=== PATIENT | male | born 1995 | race African-American/Black ===

== ENCOUNTER 2019-09-20 11:25 | Emergency (ER) | payer OTHER ==
[2019-09-20 11:53] VITALS: BMI 26.4
--- NOTE | 2019-09-20 12:10 | PDOC ---
History of Present Illness - General Stated Complaint: DIABETIC Time Seen by Provider: 09/20/19 11:33 - History of Present Illness Initial Comments: 09/20/19 12:03 24 y.o. M from [facility] DM type 1, ASD, moderate developmental delay, legal blindness, alcohol syndrome, vitamin D deficiency, chronic dermatitis, currently on amoxicillin day #5 abx for right ear otitis media, nonverbal at baseline presenting for hypoglycemia. Glucose noted this morning to be in 160s- was given 5U SC insulin w/ subsequent drop of glucose below 50. Patient appeared asymptomatic, was given PO juice at [facility]. Now presenting for evaluation for hypoglycemia. Repeat blood glucose in triage was 75. Allergies: NKDA Meds: Lantus 20U SC in AM, humalog sliding scale, ergocalciferol Past History - Past Medical History Allergies/Adverse Reactions: Allergies Allergy/AdvReac Type Severity Reaction Status Date / Time No Known Allergies Allergy Verified 09/20/19 11:54 - Psycho Social/Smoking Cessation Hx Smoking History: Unknown if ever smoked Have you smoked in the past 12 months: No Drug/Substance Use Hx: No Review of Systems - Review of Systems Comments:: 09/20/19 12:13 GENERAL/CONSTITUTIONAL: No fever/chills. HEAD, EYES, EARS, NOSE AND THROAT: No change in vision. No change in hearing. No sore throat. CARDIOVASCULAR: No obvious chest pain RESPIRATORY: No cough. No incr work of breathing. GASTROINTESTINAL: No vomiting or diarrhea. GENITOURINARY: no change in urination. SKIN: LE keloids from chronic eczema. NEUROLOGIC: No recent seizure/ loss of consciousness ENDOCRINE: No significant weight changes *Physical Exam - Vital Signs Last Vital Signs Temp Pulse Resp BP Pulse Ox 98.5 F 87 129/79 98 09/20/19 11:39 09/20/19 11:39 09/20/19 11:39 09/20/19 11:39 - Physical Exam 09/20/19 12:18 GENERAL: Awake, alert, unable to assess orientation HEENT: NCAT, sclera anicteric, conjunctiva clear,MMM LUNGS: CTABL HEART: RRR, normal S1 and S2, no MRG ABDOMEN: Soft, NTND, + bowel sounds. EXTREMITIES: No peripheral edema NEUROLOGICAL: unable to assess SKIN: b/l LE keloid scarring ED Treatment Course - LABORATORY CBC & Chemistry Diagram: 09/20/19 12:42 09/20/19 12:42 - ADDITIONAL ORDERS Additional order review: Laboratory Results 09/20/19 11:36 POC Glucometer 75 09/20/19 11:36 POC Glucometer 75 Medical Decision Making - Medical Decision Making 09/20/19 15:38 Patients serum glucose in 30's; administered stat PO juice & 1 amp D50 Patient is awake & alert Currently eating Repeat fingerstick 176 Discharge - Discharge Information Problems reviewed: Yes Clinical Impression/Diagnosis: Hypoglycemia, Medication side effect Condition: Good Disposition: HOME - Follow up/Referral - Patient Discharge Instructions Patient Printed Discharge Instructions: DI for Hypoglycemia Additional Instructions: you are being discharged after evaluation for your low blood sugar it was low likely due to insulin side effect causing the low blood sugar follow up with primary doctor at [facility] regarding his insulin regimen. make sure he eats his meals during the day and check is finger stick accordingly. return if worsening condition or changes. - Post Discharge Activity
--- NOTE | 2019-09-20 12:22 | PDOC ---
Attending Attestation - Resident Resident Name: Aminata Hendrix - ED Attending Attestation I have performed the following: I have examined & evaluated the patient, The case was reviewed & discussed with the resident, I agree w/resident's findings & plan - HPI HPI: 09/20/19 12:21 24 y.o. M from [facility] DM type 1, ASD, moderate developmental delay, legal blindness, alcohol syndrome, vitamin D deficiency, chronic dermatitis, cur rently on amoxicillin day #5 abx for right ear otitis media presenting for hypoglycemia. Glucose noted this morning to be in 160s- was given 5U SC insulin w/ subsequent drop of glucose below 50. Patient appeared asymptomatic, was given PO juice at [facility]. Now presenting for evaluation for hypoglycemia. Repeat blood glucose in triage was 75. history limited due to clinical condition. no complaints. 09/20/19 13:26 - Physicial Exam PE: 09/20/19 12:21 Agree with the resident's HPI and PE as documented in the electronic medical record. NAD, well appearing, EOMI, PERRL, nl conjunctiva, anicteric; right TM dull, with rim of white ring. neck supple. lungs clear, RRR, abdomen soft nontender. no rebound, guarding. Back nontender. CLARK x4, no focal neuro deficits. No peripheral edema. normal color for ethnicity, WWP. +eczematous lesions over abdomen and extremities, nontender, no erythema or wound. 09/20/19 13:26 09/20/19 13:27 - Medical Decision Making 09/20/19 12:21 Vital Signs Temp Pulse Resp BP Pulse Ox 98.5 F 87 129/79 98 09/20/19 11:39 09/20/19 11:39 09/20/19 11:39 09/20/19 11:39 Vital signs reviewed, afebrile normotensive and well-appearing Patient does not have any complaints, history is limited due to his clinical condition and baseline developmental delay. Minimally verbal., No complaints and otherwise asymptomatic. Glucose noted this morning to be in 160s at [facility]- was given 5U SC insulin w/ subsequent drop of glucose below 50. Repeat blood sugar is 70, likely secondary to his administration of insulin earlier today. reviewed the [facility] records - he had received 5 units insulin per sliding scale (which states between 61-150 he should receive 3 units, and above 150, insulin >5 units). blood sugar was 156 at the time and asymptomatic. however, cmp and cbc - which was remarkable for glucose 36. dextrose 1 amp given, food and juice reassess 09/20/19 15:04 - rpt bs 176. eating sandwich and robel juice rpt blood sugar has been maintained, repeated several times as documented, BS 120s and 170s here at baseline status, neuro intact discharge back to [facility] with aide, return precautions, instructions for insulin care reviewed and provided, d/w primary care doctor at facility for further management. 09/20/19 16:30 Discharge - Discharge Information Problems reviewed: Yes Clinical Impression/Diagnosis: Hypoglycemia, Medication side effect Condition: Good Disposition: HOME - Admission No - Follow up/Referral - Patient Discharge Instructions Patient Printed Discharge Instructions: DI for Hypoglycemia Additional Instructions: you are being discharged after evaluation for your low blood sugar it was low likely due to insulin side effect causing the low blood sugar follow up with primary doctor at [facility] regarding his insulin regimen. make sure he eats his meals during the day and check is finger stick accordingly. return if worsening condition or changes. - Post Discharge Activity
[2019-09-20 12:46] LABS: BASO % 0.8 % (0-2.0); EOS % 1.7 % (0-4.5); HEMATOCRIT 47.4 % (35.4-49); HEMOGLOBIN 15.9 GM/dL (11.7-16.9); LYMPH % 30.6 % (8-40); MCHC 33.6 g/dl (32.0-35.9); MEAN CELL VOLUME 89.3 fl (80-96); MEAN PLT VOLUME 8.8 fl (7.5-11.1); NEUT % 57.9 % (42.8-82.8); PLATELET COUNT 259 K/MM3 (134-434); RBC 5.31 M/mm3 (4.00-5.60); RDW 13.5 % (11.9-15.9); WHITE BLOOD COUNT 4.6 K/mm3 (4.0-10.0)
[2019-09-20 13:15] LABS: ALBUMIN 3.7 g/dl (3.4-5.0); BILIRUBIN,TOTAL 0.2 mg/dL (0.2-1); BLOOD UREA NITROGEN 6.2 mg/dL (7-18); CALCIUM 8.9 mg/dL (8.5-10.1); CREATININE 0.6 mg/dL (0.55-1.3); POTASSIUM 4.3 mmol/L (3.5-5.1); TOT PROT 7.5 g/dl (6.4-8.2)
[2019-09-20] MEDS ORDERED: DEXTROSE 50%-WATER - 25 GM/50 ML VIAL IVPUSH ONE (13:26)
[2019-09-20] MEDS ORDERED: DEXTROSE 50%-WATER 25 GM/50 ML DISP.SYRIN ONE (13:32)
[2019-09-20 16:42] VITALS: BP 128/79; PULSE 80; TEMP 98.4
== END 2019-09-20 16:43 | disposition home or self-care (01) ==
LOC: JER 11:25
PROC: 3E033GC Introduction of Other Therapeutic Substance into Peripheral Vein, Percutaneous Approach (ICD-10-PCS; principal; 2019-09-20)
DX: E09.649 Drug or chemical induced diabetes mellitus with hypoglycemia without coma (principal); T38.3X5A Adverse effect of insulin and oral hypoglycemic [antidiabetic] drugs, initial encounter; Z79.4 Long term (current) use of insulin; R62.50 Unspecified lack of expected normal physiological development in childhood; Q86.0 Fetal alcohol syndrome (dysmorphic); H54.8 Legal blindness, as defined in USA; E55.9 Vitamin D deficiency, unspecified; L30.8 Other specified dermatitis; Y92.198 Other place in other specified residential institution as the place of occurrence of the external cause; Z79.2 Long term (current) use of antibiotics
CPT/HCPCS: 36415; 80053; 82962; 85025; 96374; 99284-25